=== PATIENT | male | born 1965 | race Caucasian/White ===

== ENCOUNTER → 2024-09-23 | Outpatient (CLI) | payer MEDICARE, OTHER ==
--- NOTE | 2024-09-23 09:04 | CTL ---
EXAMINATION TYPE: CT Low Dose Lung DATE OF EXAM ORDERED: 09/23/2024 COMPARISON: None. CLINICAL INDICATION: Male, 58 years old with history of Z12.2 SCREENING LUNG CA F17.210 CURRENT SMOKE R; [facility], Current smoker 1 ppd x 20 years no concerns, Lung cancer screening, History of Smoking/tobacc o use. TECHNIQUE: Low dose computed tomography scan was performed through the chest at 1 mm thick sections a nd reconstructed images in multiple planes at 1 mm and [address] DLP: [address] CTDI: 2.07 mGy Automated exposure control for dose reduction was used. CT DIAGNOSTIC QUALITY: Limited, but interpretable FINDINGS: Nodules: RUL: There is 3 to 4 mm calcified nodule or benign granuloma right upper lobe axial image 125. RML: None. RLL: None. PASCUAL: None. LLL: None. No greater than 6 mm noncalcified pulmonary nodules. LUNGS: COPD: Severity: Mild Fibrosis: Severity: None Lymph nodes: None Other findings: Elevated left hemidiaphragm. RIGHT PLEURAL SPACE: Effusion: None Calcification: None Thickening: None Pneumothorax: None LEFT PLEURAL SPACE: Effusion: None Calcification: None Thickening: None Pneumothorax: None HEART: Heart Size: Normal Coronary Calcification: None Pericardial Effusion: None OTHER FINDINGS: Upper abdomen: None Bony thorax: Scoliotic curvature with multilevel spurring is seen. Supraclavicular region: None Other: None IMPRESSION: No greater than 6 mm non[address] pulmonary nodules. CT LUNG RAD AND CT CHEST RECOMMENDATION: Lung-Rad 2 Benign Appearance or Behavior: Continue annual sc reening with LDCT in 12 months. S Modifier (other clinically significant findings): None [facility], , 09/23/2024 9:02 AM
== END | disposition home or self-care (01) ==
LOC: RADCTMAIN 07:54
PROVIDERS: ATTEND Student in an Organized Health Care Education/Training Program
DX: Z12.2 Encounter for screening for malignant neoplasm of respiratory organs (principal); F17.210 Nicotine dependence, cigarettes, uncomplicated
CPT/HCPCS: 71271